=== PATIENT | male | born 1990 | race Caucasian/White ===

== ENCOUNTER 2024-12-12 11:56 | Emergency (ER) | payer BC, SELFPAY ==
[2024-12-12] VITALS (14 sets, daily range): BP systolic 135–192; BP diastolic 88–114; PULSE 69–80; RESP 14–22; TEMP 36.8–36.9; O2SAT 95–100; BMI 35.9
--- NOTE | 2024-12-12 11:57 | ECG_ITS ---
APPROVED REPORT Exam: Resting ECG HR:76 bpm ECG Measurements Heart Rate 76 AXES KS 132 P 10 QRSd 96 QRS 62 QT 371 T -8 QTc 401 Conclusion Normal sinus rhythm Normal axis Normal intervals No STEMI T wave inversions in lead III and aVF Electronically signed by : Ronald Hunt, 12/12/2024 17:03:02
[2024-12-12 12:49] LABS: Hematocrit 45.5 % (42.0-52.0); Hemoglobin 15.8 g/dL (14.1-18.0); Immature Granulocytes % 0.5 %; Mean Corpuscular HGB Conc 34.7 g/dL (31.8-35.4); Mean Corpuscular Hemoglobin 29.0 pg (27.0-31.2); Mean Corpuscular Volume 83.6 fl (80-94); Nucleated Red Blood Cells % 0 %; Platelet Count 171 K/mm3 (142-424); Red Blood Count 5.44 M/mm3 (4.60-6.20); Red Cell Distribution Width-SD 37.3 fL; White Blood Count 4.1 K/mm3 (4.8-10.8)
[2024-12-12 12:57] LABS: Alanine Aminotransferase 51 U/L (12-78); Albumin Level 4.7 g/dl (3.5-5.0); Albumin/Globulin Ratio 1.8 (1.1-1.8); Alkaline Phosphatase 79 U/L (38-126); Anion Gap 15.3 mEq/L (5-15); Aspartate Amino Transferase 41 U/L (17-59); Bilirubin,Total 0.8 mg/dl (0.2-1.3); Blood Urea Nitrogen 16 mg/dl (9-20); Calcium 9.5 mg/dl (8.4-10.2); Carbon Dioxide 24 mmol/L (22.0-30.0); Chloride 103 mmol/L (98-107); Creatinine Clearance Estimated 164 mL/min (50-200); Creatinine,Serum 1.00 mg/dl (0.66-1.25); Estimated Glomerular Filt Rate 85 ml/min (>60); GFR (African American) 102 ML/MIN (>60); Globulin 2.6 g/dL (1.3-3.2); Glucose 99 mg/dl (74-100); Lipase 31 U/L (23-300); Potassium 4.3 mmoL/L (3.5-5.1); Sodium 138 mmol/L (136-145); Total Protein,Serum 7.3 g/dl (6.3-8.2)
[2024-12-12] MEDS: ASPIRIN 325MG TABLET 325 MG PO (12:57)
[2024-12-12 13:02] LABS: D-Dimer 0.82 ug/mL (0.0-0.5)
[2024-12-12 13:08] LABS: Troponin I < 0.01 ng/ml (0.00-0.034)
--- NOTE | 2024-12-12 15:54 | XR_ITS ---
FINAL REPORT CLINICAL HISTORY: Chest pain FINDINGS: A portable view of the chest was obtained. Cardiac and mediastinal silhouettes are within normal limits. There are low lung volumes with right basilar opacity, likely atelectasis. There is no pleural effusion or pneumothorax. IMPRESSION: Right basilar atelectasis. Reviewed, Interpreted and Dictated by Sona Mo MD Transcribed by Marguerite Banuelos Authenticated and [facility]
[2024-12-12 15:56] LABS: Troponin I < 0.01 ng/ml (0.00-0.034)
--- NOTE | 2024-12-12 16:28 | ED_ITS ---
Discharge Plan Disposition Patient Disposition: Home, Self-Care Condition: Good Prescriptions Prescriptions: New methocarbamol 750 mg tablet 1,500 mg PO TID 7 Days Qty: 42 0RF Referrals Follow up/Referrals: Provider,Referral, MD [Primary Care Provider, Medical] - See instructions Activity Restrictions/Add. Instructions Additional Instructions/Restrictions: You can take anti-inflammatories such as motrin and tylenol for your pain. You can also take Robaxin for muscle relaxation. If you have any new or worsening symptoms please return to the ER for further evaluation. Clinical Impressions Clinical Impression: Chest pain Qualifiers: Chest pain type: unspecified Qualified Code(s): R07.9 - Chest pain, unspecified Print Language Print Language: Welsh Discharge ED Provider: Ronald Hunt Adult HPI General Chief complaint: Arrhythmia/Palpitations Stated complaint: chest pain Time Seen by Provider: 12/12/24 12:09 Mode of Arrival: Ambulatory Source of Information: Patient Description of Symptoms (Recalled from ER Triage Doc. by RN): patient presents to the ED for chest pain. patient stated that he noticed the chest pain this morning around 8 am and it was only center of his chest. no prior heart history. pain does not radiate anywhere. History of Present Illness HPI narrative: There is a 34-year-old male patient, with no past medical history and no daily medications, who is presenting to the emergency department today for evaluation of chest pain. Patient states that his chest pain began prior to arrival. He describes having a vigorous workout this morning on a [employer]. Several hours after working out he began experiencing intermittent sharp chest pains on the left chest that radiates into the right chest. His chest pain is not associated with diaphoresis, nausea, or vomiting. It is not exertional in nature. He states that it is worse with movements of his thorax. He has had no lower extremity erythema or edema. No recent surgeries. No hemoptysis. No recent travel and no testosterone use Related Data Previous Rx's ?Medication ?Instructions ?Recorded methocarbamol 750 mg tablet 1,500 mg (2 x 750 mg) PO T ID 7 12/12/24 days #42 tabs Allergies Allergy/AdvReac Type Severity Reaction Status Date / Time No Known Allergies Allergy Verified 12/12/24 12:31 [facility] Disclaimer: The information contained in this section may have been updated after the patient was seen, as this information can be updated by other users. Social History Smoking Status: Never smoker alcohol intake: never current occupational status: unemployed Travel in the last 8 weeks?: None ROS Obtained: Yes Systems reviewed as appropriate & no additional complaints except as documented Physical Exam General General appearance: other (See MDM) Respiratory Respiratory exam: Present other (See MDM) Cardiovascular Cardiovascular exam: Present other (See MDM) Neurological Exam Neurological exam: Present other (See MDM) Medical Decision Making Medical Records Medical records reviewed: Yes I reviewed the patient's medical records. Screening: Per USPSTF and CDC recommendations, given the prevalence of disease in our region, it is our hospital?s policy to screen for HIV and viral Hepatitis for all patients aged 18 and over and those with ongoing risk factors. Curry Inquiry Pt receiving controlled substance: No Curry was queried for this patient: No Vital Signs: 12/12/24 11:58 12/12/24 12:15 12/12/24 12:25 Temperature 98.2 F Temperature Source Oral Pulse Rate 75 79 Pulse Rate [Right Radial] 80 Respiratory Rate 15 16 17 Blood Pressure 192/114 H 146/100 H Blood Pressure [Right Arm] 191/112 H Blood Pressure Mean [Right Arm] 138 Blood Pressure Source [Right Arm] Automatic Cuff Blood Pressure Position [Right Arm] Sitting 02 Sat by Pulse Oximetry 100 97 97 Oxygen Delivery Method Room Air 12/12/24 12:30 12/12/24 12:45 12/12/24 13:06 Temperature Temperature Source Pulse Rate 78 72 69 Pulse Rate [Right Radial] Respiratory Rate 22 17 16 Blood Pressure 148/103 H 141/103 H 143/97 H Blood Pressure [Right Arm] Blood Pressure Mean [Right Arm] Blood Pressure Source [Right Arm] Blood Pressure Position [Right Arm] 02 Sat by Pulse Oximetry 96 95 98 Oxygen Delivery Method 12/12/24 13:15 12/12/24 13:30 12/12/24 13:45 Temperature Temperature Source Pulse Rate 71 76 71 Pulse Rate [Right Radial] Respiratory Rate 20 19 15 Blood Pressure 139/97 H 136/96 H 140/94 H Blood Pressure [Right Arm] Blood Pressure Mean [Right Arm] Blood Pressure Source [Right Arm] Blood Pressure Position [Right Arm] 02 Sat by Pulse Oximetry 96 97 97 Oxygen Delivery Method 12/12/24 14:00 12/12/24 14:15 12/12/24 14:30 Temperature Temperature Source Pulse Rate 69 70 70 Pulse Rate [Right Radial] Respiratory Rate 14 16 16 Blood Pressure 142/94 H 135/97 H 139/94 H Blood Pressure [Right Arm] Blood Pressure Mean [Right Arm] Blood Pressure Source [Right Arm] Blood Pressure Position [Right Arm] 02 Sat by Pulse Oximetry 96 96 96 Oxygen Delivery Method 12/12/24 14:45 Temperature Temperature Source Pulse Rate 72 Pulse Rate [Right Radial] Respiratory Rate 15 Blood Pressure 137/88 Blood Pressure [Right Arm] Blood Pressure Mean [Right Arm] Blood Pressure Source [Right Arm] Blood Pressure Position [Right Arm] 02 Sat by Pulse Oximetry 96 Oxygen Delivery Method Lab Data Lab Results 12/12/24 12:23: WBC 4.1 L, RBC 5.44, Hgb 15.8, Hct 45.5, MCV 83.6, MCH 29.0, MCHC 34.7, RDW 12.4, Plt Count 171, MPV 9.2, Neut % (Auto) 58.6, Lymph % (Auto) 29.0, [place] % (Auto) 8.3, Eos % (Auto) 2.9, Baso % (Auto) 0.7, Neut # (Auto) 2.4, Lymph # (Auto) 1.2, [place] # (Auto) 0.3, Eos # (Auto) 0.1, Baso # (Auto) 0.0, D- Dimer 0.82 H, Sodium 138, Potassium 4.3, Chloride 103, Carbon Dioxide 24, Anion Gap 15.3 H, BUN 16, Creatinine 1.00, Estimated Creat Clear 164, Estimated GFR 85, Est GFR ( Amer) 102, Glucose 99, Calcium 9.5, Total Bilirubin 0.8, AST 41, ALT 51, Alkaline Phosphatase 79, Troponin I < 0.01, Total Protein 7.3, Albumin 4.7, Globulin 2.6, Albumin/Globulin Ratio 1.8, Lipase 31 12/12/24 15:22: Troponin I < 0.01 12/12/24 12:23 12/12/24 12:23 Orders (Tests/Meds): ED MEDICATIONS Discontinued Medications Generic Name Dose Route Start Last Admin Trade Name Freq PRN Reason Stop Dose Admin Aspirin 325 mg 12/12/24 12:42 12/12/24 12:57 Aspirin 325mg Tablet PO 12/12/24 12:43 325 mg ONCE ONE Administration ORDERS Category Date Time Status CXR --portable [XR chest portable] Stat Exams 12/12/24 15:54 Taken CBC w/Auto Diff [Complete Blood Count Auto Diff] Stat Lab 12/12/24 12:23 Completed CMP [Comprehensive Metabolic Panel] Stat Lab 12/12/24 12:23 Completed D-Dimer Stat Lab 12/12/24 12:23 Completed Lipase Stat Lab 12/12/24 12:23 Completed Troponin I Q3H Lab 12/12/24 15:22 Completed Troponin I Q3H Lab 12/12/24 18:45 Ordered Troponin I Stat Lab 12/12/24 12:23 Completed HEART Score History (anamnesis): Slightly suspicious ECG: Normal Age: <45 years Risk factors: No known risk factors Troponin: </= normal limit HEART Score: 0 Medical Decision Narrative: In summary, this is a 34-year-old male patient who is presenting to the emergency department today for evaluation of chest pain. Chest pain is worse with movement of the thorax. It was onset prior to arrival. This patient has no comorbidities that would complicate their medical management or care. On initial evaluation of the patient they were resting comfortably in no acute distress and nontoxic in appearance. They are hemodynamically stable, saturating well room air, and are neurologically intact. On physical examination his heart and lungs are clear to auscultation bilaterally. No tenderness of the chest wall. No abdominal tenderness palpation. No lower extremity erythema or edema. Differential diagnose includes ACS/AZ, pulmonary embolism, chest wall strain, pneumothorax, pneumonia, electrolyte derangement, pancreatitis, among others Workup was initiated with hematologic labs as well as a chest x-ray. We have also obtained an EKG. Patient was managed with 324 mg of aspirin in the event that this is ACS. EKG was personally interpreted by me and demonstrates normal sinus rhythm with a rate of 76 bpm, normal axis, no GA prolongation, narrow QRS, no QTc prolongation. No ST elevation. There is a T wave inversion in lead III and aVF. Labs were personally interpreted by me and demonstrates no leukocytosis, no anemia, no electrolyte derangement or acute kidney injury. Troponin and delta troponin are less than 0.01. Patient's D-dimer 0.82 which is negative by years criteria. He does not necessitate CT pulmonary embolism study. I have performed a bedside POCUS assessment of the patient's heart and there is no evidence of right heart strain or pericardial effusion. This makes pericarditis highly unlikely. On repeat assessment the patient he states that he is still remained pain free throughout the duration of his stay in the emergency department. He states that he has had some twinges of pain when he was asked to sit up for his chest x-ray and with rotating in the bed. He questions whether his pain is musculoskeletal in nature. Given this concern I have offered him Robaxin to take at home for muscle relaxation. He has agreed to this plan. I have asked him to return to the emergency department if he has any new or worsening symptoms and to follow- up with his primary care provider. At this time all questions been answered and all parties are agreeable with the decision to discharge Procedures Miscellaneous Procedure Procedure Performed: Limited cardiac ultrasound note Indication: Chest pain Identified cardiac views: [Cardiac parasternal long axis] [Cardiac parasternal short axis] [Cardiac apical four-chamber] [Cardiac subxiphoid] Findings: Cardiac activity: Present Gross wall motion: Normal Pericardial effusion: Absent Right heart strain: Absent Impression: Normal limited cardiac echo Images were saved to permanent archive This study was technically adequate CPT: 99945 This study was performed by me and I personally interpreted all images/videos. Based on my clinical judgment these images were adequate and did not necessitate further imaging. Critical Care Critical Care Time Critical Care Time: No
== END 2024-12-12 16:32 | disposition home or self-care (01) ==
PROVIDERS: Emergency Provider Student in an Organized Health Care Education/Training Program
DX: R07.9 Chest pain, unspecified (principal)
CPT/HCPCS: 71045; 80053; 83690; 84484; 85025; 85378; 93005; 99285